=== PATIENT | female | born 1985 | race Caucasian/White ===

== ENCOUNTER 2022-10-04 07:43 | Outpatient (CLI) | payer BC | END 2022-10-04 07:44 | disposition home or self-care (01) | LOC: CSHCP 07:43 | PROVIDERS: ATTEND Internal Medicine | DX: R06.09 Other forms of dyspnea (principal) | CPT/HCPCS: 94060; 94726; 94729; 94760 ==

== ENCOUNTER 2023-08-16 08:02 | Outpatient (CLI) | payer BC | END 2023-08-16 08:03 | disposition home or self-care (01) | LOC: CSHMRI 08:02 | PROVIDERS: ATTEND Specialist | DX: M51.16 Intervertebral disc disorders with radiculopathy, lumbar region (principal); M47.26 Other spondylosis with radiculopathy, lumbar region | CPT/HCPCS: 72148 ==